=== PATIENT | male | born 1980 | race Caucasian/White ===

== ENCOUNTER 2017-01-28 15:54 | Outpatient (CLI) | payer OTHER | END 2017-01-28 15:55 | disposition home or self-care (01) | DX: M47.816 Spondylosis without myelopathy or radiculopathy, lumbar region (principal); M51.37 Other intervertebral disc degeneration, lumbosacral region ==

== ENCOUNTER 2017-02-19 12:50 | Outpatient (CLI) | payer OTHER ==
[2017-02-19] MEDS ORDERED: GADOPENTETATE DIMEGLUMINE 5 ML VIAL IVP ONE (14:27)
[2017-02-19] MEDS ORDERED: IOTHALAMATE MEGLUMINE 50 ML VIAL IVP ONE (14:27)
[2017-02-19] MEDS ORDERED: BUFFERED LIDOCAINE 10 ML SYRINGE IU ONE (14:27)
[2017-02-19] MEDS ORDERED: LIDOCAINE 1% 50 ML MDV SUBQ ONE (14:27)
== END 2017-02-19 12:51 | disposition home or self-care (01) ==
DX: M24.131 Other articular cartilage disorders, right wrist (principal); M94.8X8 Other specified disorders of cartilage, other site
CPT/HCPCS: 20610; 73222; 77002; Q9961